=== PATIENT | male | born 1970 | race Caucasian/White ===

== ENCOUNTER 2023-04-09 02:00 | Emergency (ER) | payer OTHER ==
[~2023-04-09] VITALS: Ht 175.3 cm; Wt 81.6 kg
[2023-04-09 02:08] VITALS: BP 145/91; PULSE 105; RESP 18; TEMP 97; O2SAT 99
[2023-04-09] MEDS ORDERED: ACETAMINOPHEN EXTRA STRENGTH 500 MG TAB PO ONE (02:15)
== END 2023-04-09 06:15 | disposition home or self-care (01) ==
LOC: MED 02:00
DX: T62.0X4A Toxic effect of ingested mushrooms, undetermined, initial encounter (principal); M54.9 Dorsalgia, unspecified; Y92.89 Other specified places as the place of occurrence of the external cause
CPT/HCPCS: 99283